=== PATIENT | female | born 1965 | race Caucasian/White ===

== ENCOUNTER 2016-09-27 13:24 | Emergency (ER) ==
[2016-09-27] MEDS ORDERED: DECADRON IM ONE (13:56)
[2016-09-27] MEDS ORDERED: DILAUDID IM ONE (13:56)
[2016-09-27] MEDS ORDERED: ZOFRAN IM ONE (13:56)
--- NOTE | 2016-09-27 14:07 | PROVIDER DOCUMENTATION ---
HPI-Musculoskeletal Pain/Inj - GENERAL Chief Complaint: Back Pain Stated Complaint: BACK PAIN Time Seen by Provider: 09/27/16 13:47 Source: patient - HX OF PRESENT ILLNESS-MUSKULOSKELTAL Nature of Presenting Problem: This pt presents today c complaints of R sided low back pain that radiates into her buttocks and posterior thigh X 2 days. She reports that she picked up her heavy dog and has had pain since that time. No loss of motor function or sensation. No bowel or bladder dysfunction. Pt is ambulating well. No other injuries or complaints. Quality of Pain: reports: aching, sharp Severity in ED: moderate Onset/Duration: 3 days ago Timing: still present Modifying Factors: improves with: movement, palpation Similar Symptoms Previously?: Yes Recently seen or treated by another doctor?: No Review of Systems - Adult - REVIEW OF SYSTEMS - ADULT Constitutional: reports: no symptoms reported. denies: chills, fatique Eyes: reports: no symptoms reported. denies: discharge, dry eyes Ears, Nose, Mouth & Throat: reports: no symptoms reported. denies: ear discharge, ear pain Cardiovascular: reports: no symptoms reported. denies: chest pain, edema Respiratory: reports: no symptoms reported. denies: chronic cough, cough Gastrointestinal: reports: no symptoms reported. denies: abdominal pain, hematemesis Genitourinary: reports: no symptoms reported. denies: dysuria, discharge Musculoskeletal: reports: back pain. denies: bone pain, joint pain, joint swelling Integumentary: reports: no symptoms reported. denies: hives, hair loss Neurological: reports: no symptoms reported. denies: ataxia, dizziness/vertigo Psychiatric: reports: no symptoms reported. denies: anxiety, anti-depressant use Endocrine: reports: no symptoms reported Hematologic/Lymphatic: reports: no symptoms reported Allergic/Immunologic: reports: no symptoms reported All Other Systems: Reviewed and Negative Past History - Adult - PAST MEDICAL HISTORY-ADULT Review of Records: reports: Old Records Reviewed, Nursing Assessment Review, Medications Reviewed, Social history reviewed & non-contributory. Major Childhood Illnesses: reports: denies history Cardiovascular: reports: denies history Respiratory: reports: denies history Gastrointestinal: reports: denies history Obstetrical/Gynecological: reports: denies history Genitourinary: reports: denies history Musculoskeletal: reports: denies history Neurological: reports: headaches/migraines Endocrine/Immune: reports: denies history Other Conditions: reports: denies history - PRIOR SURGERIES/PROCEDURES Surgical/Procedure History: reports: none - IMMUNIZATION STATUS Childhood Immunizations: See Nurse Assessment Flu Vaccine: See Nurse Assessment - FAMILY HISTORY Family History: reviewed, not pertinent Physical Exam-Injury Related - Physical Exam-Injury Related Initial Vital Signs Reviewed: Yes General Appearance: appears well, alert, no apparent distress Eyes: PERRL/EOMI, pink conjunctivae Head, Ears, Nose, Mouth & Throat: normocephalic/atraumatic, normal ENT inspection, TMs normal, pharynx normal Neck: non-tender, full range of motion, supple, normal inspection Respiratory: chest non-tender, lungs clear, normal breath sounds, no pleuratic chest pain, no respiratory distress, no accessory muscle use Cardiovascular: normal peripheral pulses, regular rate, rhythm, no edema, no gallop, no JVD, no murmur Abdominal Exam: normal bowel sounds, non tender, soft, no organomegaly, no pulsatile mass Lymphatic: no adenopathy Back Exam: no CVA tenderness, no vertebral tenderness, other (tenderness to palpation R low back) Extremity: normal range of motion, non-tender, normal gait, normal inspection, no pedal edema, no calf tenderness, normal capillary refill, pelvis stable Integumentary: normal color, warm/dry 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, no motor/sensory deficits Psych/Mental Status: AL, normal mood/affect, normal thought content, normal thought process, oriented x 3 Progress - PLAN OF CARE/RESULTS Progress/Plan/Lab Results: Orders Category Date Time Status Dexamethasone [Decadron] Med 09/27/16 13:56 Discontinued 10 mg IM NOW ONE Hydromorphone [Dilaudid] Med 09/27/16 13:56 Discontinued 1 mg IM NOW ONE Ondansetron [Zofran] Med 09/27/16 13:56 Discontinued 4 mg IM NOW ONE Vital Signs Temp Pulse Resp BP Pulse Ox 09/27/16 13:29 98.1 F 70 18 136/88 100 butorphanol tartrate * [From Stadol] Allergy (Verified 09/27/16 14:08) HIVES codeine Allergy (Verified 09/27/16 14:08) HIVES diphenhydramine HCl * [From Benadryl] Allergy (Verified 09/27/16 14:08) Unknown ketorolac tromethamine * [From Toradol] Allergy (Verified 09/27/16 14:08) RASH orphenadrine citrate * [From Norflex] Allergy (Verified 09/27/16 14:08) ITCHING phenazopyridine HCl * [From Pyridium] Allergy (Verified 09/27/16 14:08) Unknown prochlorperazine [From Compazine] Allergy (Verified 09/27/16 14:08) ITCHING prochlorperazine edisylate * [From Compazine] Allergy (Verified 09/27/16 14:08) ITCHING prochlorperazine maleate * [From Compazine] Allergy (Verified 09/27/16 14:08) ITCHING ranitidine HCl * [From Zantac] Allergy (Verified 09/27/16 14:08) NAUSEA Butalb/Acetaminophen/Caffeine [Fioricet 50-300-40 mg Capsule] 1 each PO Q6-8H PRN PRN #20 capsule 06/05/16 Carvedilol 12.5 mg PO BID 06/12/16 Lisinopril [Zestril] 20 mg pe PO DAILY 06/12/16 Spironolactone/Hctz [Aldactazide ] 1 each PO DAILY 06/12/16 Sumatriptan 5 mg NS BID PRN PRN #1 spray 06/12/16 Trazodone [Desyrel] 100 mg PO QHS 06/12/16 Departure - Departure Time of Disposition Order: 14:09 DIAGNOSIS: Low back pain with sciatica Qualifiers: Chronicity: acute Back pain laterality: right Sciatica laterality: sciatica of right side Qualified Code(s): M54.41 - Lumbago with sciatica, right side Disposition: HOME 01 Certified Medical Emergency: Urgent Condition: Good Additional Instructions: Follow up with your primary care provider or orthopedist. ED Follow Up Instructions: You have been treated by a care provider in the Emergency Department. These instructions are being provided to you so you can have an understanding of how to care for yourself upon discharge. Upon discharge from the Emergency Department, you are responsible for making arrangements for follow-up care by a physician of your choice. Take all prescribed medications as directed. Return to the Emergency Department immediately for any new or worsening symptoms. You may call the Physician Referral phone number at [phone] to obtain a list of Physicians who are taking new patients. Referrals: None,PCP [Primary Care Provider] - Nikolai Castro MD [STAFF PHYSICIAN] - Attestation - Physician/ Mid-level Attestation Patient care was provided by Mid-level provider (WINE [employer]CHANT/PA):: Yes Mid-level provider:: Golden Rosenthal Mid-level documentation review:: The Mid-level provider documentation, treatment plan and medical decision making was reviewed by the physician who agrees with all treatment and medical decision making by the MLP.
[2016-09-27 14:36] VITALS: BP 141/72
== END 2016-09-27 14:47 | disposition home or self-care (01) ==
LOC: ED 13:24
DX: M54.41 Lumbago with sciatica, right side (principal); Z79.899 Other long term (current) drug therapy
CPT/HCPCS: 96372; J1170; J2405

== ENCOUNTER 2016-11-11 20:16 | Emergency (ER) ==
[2016-11-11 20:23] VITALS: BP 150/91
[2016-11-11] MEDS ORDERED: NUBAIN IM ONE (20:34)
--- NOTE | 2016-11-11 20:34 | PROVIDER DOCUMENTATION ---
HPI-Headache - General Chief Complaint: Headache Stated Complaint: MIGRAINE Time Seen by Provider: 11/11/16 20:28 Source: patient Allergies/Adverse Reactions: Patient Allergies Allergy/AdvReac Type Severity Reaction Status Date / Time butorphanol tartrate * Allergy HIVES Verified 10/07/16 14:26 [From Stadol] codeine Allergy HIVES Verified 10/07/16 14:26 diphenhydramine HCl * Allergy Unknown Verified 10/07/16 14:26 [From Benadryl] ketorolac tromethamine * Allergy RASH Verified 10/07/16 14:26 [From Toradol] orphenadrine citrate * Allergy ITCHING Verified 10/07/16 14:26 [From Norflex] phenazopyridine HCl * Allergy Unknown Verified 10/07/16 14:26 [From Pyridium] prochlorperazine Allergy ITCHING Verified 10/07/16 14:26 [From Compazine] prochlorperazine edisylate * Allergy ITCHING Verified 10/07/16 14:26 [From Compazine] prochlorperazine maleate * Allergy ITCHING Verified 10/07/16 14:26 [From Compazine] ranitidine HCl * Allergy NAUSEA Verified 10/07/16 14:26 [From Zantac] Home Medications: Home Medication List Medication Instructions Recorded Confirmed Last Taken Type Carvedilol 12.5 mg PO BID 06/12/16 10/07/16 10/06/16 History Lisinopril [Zestril] 20 mg pe PO DAILY 06/12/16 10/07/16 10/06/16 History Spironolactone/Hctz [Aldactazide 1 each PO DAILY 06/12/16 10/07/16 10/06/16 History 2525] Sumatriptan 5 mg NS BID PRN PRN #1 spray 06/12/16 10/07/16 Unknown Rx Trazodone [Desyrel] 100 mg PO QHS 06/12/16 10/07/16 10/05/16 History Butalbital/APAP/Caffeine [Fioricet] 1 each PO Q4H PRN PRN #7 tablet 10/07/16 Unknown Rx Promethazine [Phenergan] 25 mg PO Q6H PRN PRN #20 tablet 10/07/16 Unknown Rx - History of Present Illness-Headache Nature of Presenting Problem: 50 y/o WF c/o LINDSAY x 7 hours. Pt states hx of migraines and today's LINDSAY is normal pattern. Reports L frontal lobe LINDSAY that is 8/10 with photo/phono-phobia, N/V x 2. Denies any other sxs. States ran out of medications that she was given here one month ago. Has not followed up with neurologist or PCP yet. Review of Systems - Adult - REVIEW OF SYSTEMS - ADULT Constitutional: reports: no symptoms reported. denies: chills, fever Eyes: reports: no symptoms reported. denies: blurred vision, double vision Ears, Nose, Mouth & Throat: reports: no symptoms reported. denies: ear pain, nose pain Cardiovascular: reports: no symptoms reported. denies: chest pain, palpitations Respiratory: reports: no symptoms reported. denies: dyspnea on exertion, shortness of breath Gastrointestinal: reports: see HPI, nausea, vomiting. denies: abdominal pain, constipation, diarrhea Genitourinary: reports: no symptoms reported. denies: dysuria, frequency Musculoskeletal: reports: no symptoms reported. denies: joint pain, joint swelling Integumentary: reports: no symptoms reported. denies: nail changes, rash Neurological: reports: see HPI, headache/migraines. denies: dizziness/vertigo, numbness, paresthesia Psychiatric: reports: no symptoms reported Endocrine: reports: no symptoms reported. denies: cold intolerance, heat intolerance Hematologic/Lymphatic: reports: no symptoms reported. denies: easy bruising, prolonged bleeding Allergic/Immunologic: reports: no symptoms reported All Other Systems: Reviewed and Negative Past History - Adult - PAST MEDICAL HISTORY-ADULT Review of Records: reports: Nursing Assessment Review, Medications Reviewed Major Childhood Illnesses: reports: denies history Cardiovascular: reports: denies history Respiratory: reports: denies history Gastrointestinal: reports: denies history Obstetrical/Gynecological: reports: denies history Genitourinary: reports: denies history Musculoskeletal: reports: denies history Neurological: reports: headaches/migraines Endocrine/Immune: reports: denies history Other Conditions: reports: denies history - PRIOR SURGERIES/PROCEDURES Surgical/Procedure History: reports: none - IMMUNIZATION STATUS Childhood Immunizations: See Nurse Assessment Flu Vaccine: See Nurse Assessment - FAMILY HISTORY Family History: reviewed, not pertinent - SOCIAL HISTORY Smoking: denies Living Situation: family Physical Exam- Neurological - Physical Exam-Neuro Initial Vital Signs Reviewed: Yes General Appearance: alert, mild distress Eye Exam: bilateral eye: normal inspection, PERRL, EOMI HENMT: normocephalic/atraumatic, moist mucous membranes. negative: hearing deficit Head Injury: no evidence of injury Neck: full range of motion, supple, normal inspection Respiratory: lungs clear, normal breath sounds. negative: crackles, rales, rhonchi, stridor, wheezing Cardiovascular: regular rate, rhythm. negative: bradycardia, tachycardia Abdominal Exam: normal bowel sounds, non tender, soft. negative: distended, guarding, rigid, McBurney's point tenderness, Andrade's sign Extremity: normal gait financial reporting analyst Exam: normal hearing, normal speech, PERRL. negative: abnormal eye position , abnormal pupil position, abnormal speech, facial asymmetry, facial droop, facial paresthesias, facial weakness, gaze palsy, hearing deficit (R), hearing deficit (L), tongue deviation to R, tongue deviation to L Coordination/Gait: normal gait Neurologic: financial reporting analyst II-XII nml as tested. negative: aphasia, EOM palsy, facial droop Integumentary: normal color, normal turgor, warm/dry Psych/Mental Status: normal mood/affect, normal thought content, normal thought process, oriented x 3 Progress - PLAN OF CARE/RESULTS Progress/Plan/Lab Results: Orders Category Date Time Status Nalbuphine [Nubain] Med 11/11/16 20:34 Discontinued 15 mg IM NOW ONE Promethazine [Phenergan] Med 11/11/16 20:35 Discontinued 25 mg IM NOW ONE Vital Signs Temp Pulse Resp BP Pulse Ox 11/11/16 20:22 98.1 F 73 20 150/91 98 butorphanol tartrate * [From Stadol] Allergy (Verified 11/11/16 20:46) HIVES codeine Allergy (Verified 11/11/16 20:46) HIVES diphenhydramine HCl * [From Benadryl] Allergy (Verified 11/11/16 20:46) Unknown ketorolac tromethamine * [From Toradol] Allergy (Verified 11/11/16 20:46) RASH orphenadrine citrate * [From Norflex] Allergy (Verified 11/11/16 20:46) ITCHING phenazopyridine HCl * [From Pyridium] Allergy (Verified 11/11/16 20:46) Unknown prochlorperazine [From Compazine] Allergy (Verified 11/11/16 20:46) ITCHING prochlorperazine edisylate * [From Compazine] Allergy (Verified 11/11/16 20:46) ITCHING prochlorperazine maleate * [From Compazine] Allergy (Verified 11/11/16 20:46) ITCHING ranitidine HCl * [From Zantac] Allergy (Verified 11/11/16 20:46) NAUSEA Carvedilol 12.5 mg PO BID 06/12/16 Lisinopril [Zestril] 20 mg pe PO DAILY 06/12/16 Spironolactone/Hctz [Aldactazide ] 1 each PO DAILY 06/12/16 Sumatriptan 5 mg NS BID PRN PRN #1 spray 06/12/16 Trazodone [Desyrel] 100 mg PO QHS 06/12/16 Butalbital/APAP/Caffeine [Fioricet] 1 each PO Q4H PRN PRN #7 tablet 10/07/16 Promethazine [Phenergan] 25 mg PO Q6H PRN PRN #20 tablet 10/07/16 Discussed f/u with PCP or neurologist for further management of LINDSAY. Departure - Departure Time of Disposition Order: 20:35 DIAGNOSIS: Migraine Qualifiers: Migraine type: unspecified Status migrainosus presence: without status migrainosus Intractability: not intractable Qualified Code(s): G43.909 - Migraine, unspecified, not intractable, without status migrainosus Disposition: HOME 01 Certified Medical Emergency: Emergent Condition: Stable Additional Instructions: Follow up with specialist for further management. ED Follow Up Instructions: You have been treated by a care provider in the Emergency Department. These instructions are being provided to you so you can have an understanding of how to care for yourself upon discharge. Upon discharge from the Emergency Department, you are responsible for making arrangements for follow-up care by a physician of your choice. Take all prescribed medications as directed. Return to the Emergency Department immediately for any new or worsening symptoms. You may call the Physician Referral phone number at [phone] to obtain a list of Physicians who are taking new patients. Referrals: None,PCP [Primary Care Provider] - Bere Moraes III, MD [STAFF PHYSICIAN] - Attestation - Physician/ HALEY Attestation Patient care was provided by Advanced Practice Provider:: Yes Advanced Practice Provider:: Elham Sarmiento Advanced Practice Provider documentation review:: The Mid-level provider documentation, treatment plan and medical decision making was reviewed by the physician who agrees with all treatment and medical decision making by the MLP.
[2016-11-11] MEDS ORDERED: PHENERGAN IM ONE (20:35)
== END 2016-11-11 21:04 | disposition home or self-care (01) ==
LOC: ED 20:16
DX: G43.909 Migraine, unspecified, not intractable, without status migrainosus (principal); R51 Headache; R11.2 Nausea with vomiting, unspecified; Z79.899 Other long term (current) drug therapy
CPT/HCPCS: J2300; J2550